=== PATIENT | male | born 1965 | race African-American/Black ===

== ENCOUNTER 2022-03-19 11:48 | Emergency (ER) | payer BC, SELFPAY ==
[2022-03-19 12:06] VITALS: BP 159/99; PULSE 59; RESP 20; TEMP 36.8; O2SAT 96; BMI 33.7
--- NOTE | 2022-03-19 12:20 | CRLHL7_ITS ---
For Patients: As a result of the Cures Act, medical imaging exams and procedure reports are released immediately into your electronic medical record. You may view this report before your referring provider. If you have questions, please contact your health care provider. HISTORY: Right shoulder injury. TECHNIQUE: Three views of the right shoulder. COMPARISON: No prior. FINDINGS: There is no acute fracture or dislocation. Mild right glenohumeral joint degenerative changes are present. There are advanced right AC joint degenerative changes. No abnormality within the included right lung. IMPRESSION: 1. No acute fracture or dislocation. 2. Degenerative changes. Dictated by Chad Garza MD @ 03/19/2022 12:59:34 PM Dictated by: Chad Garza MD @ 03/19/2022 12:59:41 (Electronically Signed)
--- NOTE | 2022-03-19 12:46 | ED.GENADULT ---
HPI - General Adult General Date Seen: 03/19/22 Chief complaint: Extremity Pain/Injury, Upper Stated complaint: RT shoulder injury Time Seen by Provider: 03/19/22 12:14 Source: patient History of Present Illness HPI narrative: Patient is a 56-year-old male who was playing table tennis. 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 He says his arm was completely extended and he externally rotated shoulder as he was picking up the ball. In doing so, he experience severe pain in the lateral part of his shoulder which has continued. He says he is not moving he does not hurt very much but with any movement he experiences severe pain. It does not radiate, limited to the shoulder area. No numbness or loss of function in the hand. No other injuries or complaints. Does not have a history of problems with the shoulder, says he needs shoulder surgery on the left. Related Data Home Medications Medication Instructions Recorded Confirmed amlodipine 10 mg tablet 10 mg PO DAILY 03/19/22 03/19/22 atorvastatin 40 mg tablet 40 mg PO DAILY 03/19/22 03/19/22 Allergies Allergy/AdvReac Type Severity Reaction Status Date / Time lisinopril Allergy Anaphylaxis Verified 03/19/22 12:13 [facility] Social History Smoking Status: Never smoker Do you use any of these nicotine containing products: None How often do you have a drink containing alcohol: 2-4 times a month How many standard drinks containing alcohol do you have on a typical day: 1 or 2 AUDIT-C Alcohol total score: 2 Non-prescribed substance use: denies use service: Yes Exam Const: Vital Signs, click to edit/add: Vital Signs - 24 hr 03/19/22 12:06 Temperature 98.2 F Pulse Rate [Left P ulse Oximeter] 59 L Respiratory Rate 20 Blood Pressure [Le ft Upper Arm] 159/99 H Pulse Oximetry 96 Oxygen Delivery Me thod Room Air Course Course Hospital Course: Patient had x-rays of the right shoulder which by my review are negative, I do not see any evidence of dislocation specifically. The final radiology report is negative. After negative x-rays, I did have him do more range of motion. He is able to abduct to 180? and is able to abduct fully through the full 180?. Extension is somewhat harder for him, he goes to about 90? before experiencing more pain and does not want to go further. Internal and external rotation are relatively preserved. At this time, etiology of his symptoms is a little unclear. Mechanism seems unusual for rotator cuff injury although he says that that is what is wrong with his left shoulder. For now, is suggested that wheezes sling and rest the shoulder for few days, conservative measures including ice and ibuprofen. If this just a simple muscle sprain, would expected to improve over the next few days to week. It is not getting better with conservative measures, recommend orthopedic follow-up for consideration of advanced imaging. Did advise him that he should be doing some gentle but relatively thorough range of motion several times a day to avoid frozen shoulder. Vital Signs Vital signs: Initial Vital Signs Temperature 98.2 F 03/19/22 12:06 Temperature Source Temporal Artery Scan 03/19/22 12:06 Pulse Rate 59 L 03/19/22 12:06 Respiratory Rate 20 03/19/22 12:06 Blood Pressure 159/99 H 03/19/22 12:06 Blood Pressure Mean 119 03/19/22 12:06 Blood Pressure Position Supine 03/19/22 12:06 Pulse Oximetry 96 03/19/22 12:06 Oxygen Delivery Method 03/19/22 12:06 Vital Signs Temperature 98.2 F 03/19/22 12:06 Pulse Rate 59 L 03/19/22 12:06 Respiratory Rate 20 03/19/22 12:06 Blood Pressure 159/99 H 03/19/22 12:06 Pulse Oximetry 96 03/19/22 12:06 Oxygen Delivery Method 03/19/22 12:06 Temperature 98.2 F 03/19/22 12:06 Pulse Rate 59 L 03/19/22 12:06 Respiratory Rate 20 03/19/22 12:06 Blood Pressure 159/99 H 03/19/22 12:06 Pulse Oximetry 96 03/19/22 12:06 Oxygen Delivery Method 03/19/22 12:06 Discharge Plan Discharge Clinical Impression: Injury of right shoulder Patient Disposition: Home, Self-Care Condition: Stable Instructions: Shoulder Sprain (ED) Additional Instructions: Sling as needed for comfort. Make sure to remove the sling and range your shoulder a few times a day. Ibuprofen 3 times daily with food. Ice several times a day for the next few days. If not responding to conservative measures over the next several days to week, follow up with Orthopedics for additional evaluation. Prescriptions: No Action amlodipine 10 mg tablet 10 mg PO DAILY atorvastatin 40 mg tablet 40 mg PO DAILY Follow Up/Referrals: Provider,Not a Local [Primary Care Provider] - Stand Alone Forms: [employer] Info Instructions
== END 2022-03-19 13:27 | disposition home or self-care (01) ==
PROVIDERS: Emergency Provider Emergency Medicine
DX: S49.91XA Unspecified injury of right shoulder and upper arm, initial encounter (principal)
CPT/HCPCS: 73030; 99283